=== PATIENT | female | born 1970 | race Caucasian/White ===

== ENCOUNTER 2020-02-06 16:49 | Emergency (ER) | payer OTHER, SELFPAY ==
[2020-02-06 17:01] VITALS: BP 117/73; PULSE 87; RESP 18; TEMP 36.8; O2SAT 100
--- NOTE | 2020-02-06 17:06 | ED.LOWEXIN ---
HPI - Extremity Injury (Lower) General Chief Complaint: Extremity Injury, Lower Stated Complaint: Extremity Injury, Lower Source: patient Mode of arrival: ambulatory Limitations: no limitations History of Present Illness HPI Narrative: Patient is a 49-year-old female who presents complaining of right lower back pain that radiates into her right buttock. She reports that she was walking dog who got excited and patient twisted around injuring back. She denies falling, she denies other injury. She reports taking Tylenol with limited relief. She denies major medical history. Related Data Allergies Allergy/AdvReac Type Severity Reaction Status Date / Time diphenhydramine Allergy Intermediate vomiting Verified 01/22/18 10:29 Review of Systems Review of Systems: Narrative: CONSTITUTIONAL: Denies fever, chills, or sweats. EYES: Denies visual changes, redness, or discharge. ENT: Denies rhinorrhea, congestion, sore throat, or otalgia. CARDIOVASCULAR: Denies chest pain, palpitations, or edema. RESPIRATORY: Denies cough or dyspnea. GASTROINTESTINAL: Denies abdominal pain, nausea, vomiting, or diarrhea. GENITOURINARY: Denies dysuria or hematuria. SKIN: Denies rash or itching. MUSCULOSKELETAL: Reports lower back pain that radiates down leg NEUROLOGIC: Denies headache, numbness, dizziness, or weakness. PSYCHIATRIC: Denies anxiety or depression. PMFSH Past Medical History Medical History Bipolar disorder Endometriosis Surgical History Surgical History H/O: Family History Family History Other No significant family history Social History Social History (Updated 02/06/20 @ 17:09 by CHRISTINE Cobos) Smoking status: Current every day smoker Alcohol intake: current Alcohol use details: Occasional Substance use: never Living arrangements: with family Gender identity (if verbalized by the patient): Female Exam Narrative: Exam Narrative: GENERAL: Well-appearing, well-nourished, and in no acute distress. HEAD: Normocephalic, atraumatic. EYES: No redness or drainage. ENT: Mucous membranes pink and moist. CHEST: No respiratory distress. Clear to auscultation. HEART: Regular rate and rhythm. MUSCULOSKELETAL: Right lower back tenderness with palpation, no ecchymosis or abnormality noted EXTREMITIES: Normal range of motion. No edema. SKIN: Warm, dry, no rash. NEURO: No focal deficits. Alert and oriented x3. Gait steady. PSYCH: Normal affect. No signs of depression or anxiety. Course Vital Signs Vital signs: Vital Signs Temperature 36.8 C 02/06/20 17:01 Pulse Rate 87 02/06/20 17:01 Respiratory Rate 18 02/06/20 17:01 Blood Pressure 117/73 02/06/20 17:01 Pulse Oximetry 100 02/06/20 17:01 Temperature 36.8 C 02/06/20 17:01 Pulse Rate 87 02/06/20 17:01 Respiratory Rate 18 02/06/20 17:01 Blood Pressure 117/73 02/06/20 17:01 Pulse Oximetry 100 02/06/20 17:01 Reviewed MDM - Extremity Injury (Lower) MDM Narrative Medical decision making narrative: Patient most likely has musculoskeletal back pain due to twisting nature of injury. Patient to be given muscle relaxant and pain medication. Discussed with patient ice and heat for comfort. Patient is stable for discharge to home with outpatient follow-up as discussed. Differential Diagnosis Differential diagnosis: Likely other (Sprain, strain, contusion) Critical Care Time Critical Care Time Critical Care Time: No Discharge Plan Discharge Clinical Impression: Musculoskeletal back pain Patient Disposition: Home, Self-Care Condition: Stable Instructions: Antibiotic Form, Acute Low Back Pain (ED) Additional Instructions: Take medication as directed. You may use ice or heat for comfort. Follow-up with your PCP if pain increases or yo
[2020-02-06] MEDS: KETOROLAC (*BKC) 60 MG/2 ML VIAL IM (17:23)
== END 2020-02-06 17:57 | disposition home or self-care (01) ==
PROVIDERS: Emergency Provider Nurse Practitioner
DX: M54.5 Low back pain (principal); F17.200 Nicotine dependence, unspecified, uncomplicated; N80.9 Endometriosis, unspecified
CPT/HCPCS: 96372; 99213; G0463; J1885

== ENCOUNTER 2020-02-23 11:03 | Emergency (ER) | payer OTHER, SELFPAY ==
--- NOTE | ~2020-02-23 | XR_ITS ---
EXAMINATION: XR hip RT min 2V DATE: 02/23/2020 11:38 INDICATION: Posterior right hip pain post fall TECHNIQUE: Anteroposterior view of the pelvis and anteroposterior, frog leg and cross-table lateral v iews of the right hip were obtained. COMPARISON: None. FINDINGS: Alignment is normal. No fracture. Joint spaces are normal. Soft tissues are unremarkable. IMPRESSION: 1. Negative right hip radiographs. Reviewed, dictated and finalized at location A. MANAGER
[2020-02-23 11:13] VITALS: BP 147/98; PULSE 98; RESP 16; TEMP 36.4; O2SAT 100
--- NOTE | 2020-02-23 11:18 | ED.LOWEXIN ---
HPI - Extremity Injury (Lower) General Chief Complaint: Back Pain/Injury Stated Complaint: Fall Time Seen by Provider: 02/23/20 11:19 Source: patient and RN notes reviewed History of Present Illness HPI Narrative: Patient is a 49-year-old female who presents the urgent care with complaints of a recurrent fall. Patient was seen on the stating that her dog knocked her over and was having back pain at that time. Patient was given Flexeril. Patient then went to the emergency room on the and was prescribed tramadol for her pain. Patient has had no x-rays at our facility. Patient states that she did have x-rays in the emergency room and they told her she had a torn ligament. Patient states that 4 days ago she has now had a recurrent fall, down the steps, after her dog pushed her down the stairs. Patient states that she is having right sided low back pain that radiates into the buttocks and down the right leg. Patient states the the pain has been the same and is never resolved from her first episode. Patient reports of trying everything without any relief . Reports of falling down concrete stairs and landing directly on the right buttock/hip. Patient states that she is having worsening pain with weightbearing, ambulation and even sitting on the right side. Denies of hitting her head or any loss of consciousness. States that she has been taking the tramadol, Tylenol and Flexeril without any pain relief. No other acute complaints. Patient has requested a different pain medication several times during the assessment. Patient is erratic in the chair. Poor hygiene noted. Patient aware of the plan of care. Some parts of this dictation were generated by voice recognition software and may contain typographical and/or grammatical inaccuracies. Related Data Home Medications Medication Instructions Recorded Confirmed citalopram 20 mg PO DAILY 02/23/20 02/23/20 hydroxyzine HCl 50 mg PO TID 02/23/20 02/23/20 quetiapine [Seroquel] 50 mg PO BID 02/23/20 02/23/20 venlafaxine 50 mg PO BID 02/23/20 02/23/20 Allergies Allergy/AdvReac Type Severity Reaction Status Date / Time diphenhydramine Allergy Intermediate vomiting Verified 02/23/20 11:24 Review of Systems Review of Systems: Narrative: CONSTITUTIONAL: Denies fever, chills, or sweats. EYES: Denies visual changes, redness, or discharge. ENT: Denies rhinorrhea, congestion, sore throat, or otalgia. CARDIOVASCULAR: Denies chest pain, palpitations, or edema. RESPIRATORY: Denies cough or dyspnea. GASTROINTESTINAL: Denies abdominal pain, nausea, vomiting, or diarrhea. GENITOURINARY: Denies dysuria or hematuria. SKIN: Denies rash or itching. MUSCULOSKELETAL: Reports of right low back pain radiating to the right hip, right groin and down the right leg NEUROLOGIC: Denies headache, numbness, or weakness. All other systems reviewed are negative, except as documented in HPI. [facility] Past Medical History Medical History Bipolar disorder Endometriosis Surgical History Surgical History H/O: Family History Family History Other No significant family history Social History Social History (Updated 02/06/20 @ 17:09 by CHRISTINE Cobos) Smoking status: Current every day smoker Alcohol intake: current Substance use: never Gender identity (if verbalized by the patient): Female Comments At the time of my signature, I reviewed and agree with the nursing past medical, surgical, social, and family history. There is no relevant family history pertinent to the patient complaint. Exam Narrative: Exam Narrative: GENERAL: This is a well-nourished, well-developed patient. Disheveled, poor hygiene and erratic HEAD: normocephalic, atraumatic. EYES: PERRL. Sclera clear/white. Vision is grossly intact. EARS:
--- NOTE | 2020-02-23 11:45 | PC.NURSE ---
PT TAKEN TO RADIOLOGY IN WHEELCHAIR
== END 2020-02-23 12:02 | disposition home or self-care (01) ==
PROVIDERS: Emergency Provider Nurse Practitioner Family
DX: M25.551 Pain in right hip (principal); S39.012A Strain of muscle, fascia and tendon of lower back, initial encounter; W10.9XXA Fall (on) (from) unspecified stairs and steps, initial encounter; F17.200 Nicotine dependence, unspecified, uncomplicated; N80.9 Endometriosis, unspecified; F31.9 Bipolar disorder, unspecified
CPT/HCPCS: 73502; 99213; G0463

== ENCOUNTER 2020-10-17 16:27 | Emergency (ER) | payer OTHER, SELFPAY ==
[2020-10-17 16:38] VITALS: BP 108/71; PULSE 104; RESP 16; TEMP 36.8; O2SAT 98
--- NOTE | 2020-10-17 17:24 | ED.SKABFB ---
HPI - Skin/Abscess/Foreign Bdy General Chief complaint: Skin/Abscess/Foreign Body Stated complaint: Possible Head Lice or possible Bed Bugs Time Seen by Provider: 10/17/20 17:26 Source: patient, RN notes reviewed and old records reviewed Mode of arrival: ambulatory Limitations: no limitations History of Present Illness HPI narrative: 50-year-old female presents to [facility] with complaints of head itching for the past 2 weeks wonders if she has head lice or bedbugs. Patient states she thought some items at a yard sale 2-1/2 weeks ago concerned that maybe she had known contact with bedbugs or head lice from items. Patient reports that she just shaved her head 4 weeks ago, hair starting to grow back possibly this itchy scalp could be from her hair growing back wants to be checked for head lice. Denies any specific lesions on skin, no fever chills or sweats, no other ill symptoms. Related Data Home Medications Medication Instructions Recorded Confirmed citalopram 20 mg PO DAILY 02/23/20 10/17/20 hydroxyzine HCl 50 mg PO TID PRN 02/23/20 10/17/20 quetiapine 100 mg PO HS 10/17/20 10/17/20 venlafaxine 225 mg PO DAILY 10/17/20 10/17/20 Allergies Allergy/AdvReac Type Severity Reaction Status Date / Time diphenhydramine Allergy Intermediate vomiting Verified 10/17/20 17:36 Review of Systems Review of Systems: CONSTITUTIONAL: Denies fever, chills, or sweats. EYES: Denies visual changes, redness, or discharge. ENT: Denies rhinorrhea, congestion, sore throat, or otalgia. CARDIOVASCULAR: Denies chest pain, palpitations, or edema. RESPIRATORY: Denies cough or dyspnea. GASTROINTESTINAL: Denies abdominal pain, nausea, vomiting, or diarrhea. GENITOURINARY: Denies dysuria or hematuria. SKIN: Denies rash positive itching to scalp. MUSCULOSKELETAL: Denies back pain, joint pain, or myalgia. NEUROLOGIC: Denies headache, numbness, or weakness. PSYCHIATRIC: Denies anxiety or depression. All systems reviewed & are unremarkable except as noted in HPI and below PMFSH Past Medical History Medical History (Updated 10/21/20 @ 10:32 by Eula Lofton NP) Bipolar disorder Endometriosis Surgical History Surgical History (Updated 10/20/20 @ 10:36 by Eula Lofton NP) H/O: History of endometrial ablation Family History Family History Other No significant family history Social History Social History Smoking status: Current every day smoker Alcohol intake: current Alcohol use details: Occasional Substance use: never Gender identity (if verbalized by the patient): Female Comments At time of signature, agree with nursing past medical, surgical, social and family history. There is no relevant family history pertinent to the presenting complaint Exam Narrative: GENERAL: Well-appearing, well-nourished, and in no acute distress, hygiene good. HEAD: Normocephalic, atraumatic. EYES: PERRLA and EOMI. ENT: Nares clear, no rhinorrhea or epistaxis. Mucous membranes moist. NECK: Supple. No lymphadenopathy CHEST: Clear to auscultation. No respiratory distress. SaO2 98% on room air HEART: Regular rate and rhythm. No murmur heard. Normal peripheral pulses. ABDOMEN: Soft, nontender, nondistended, normal active bowel sounds. EXTREMITIES: Normal range of motion. No edema. SKIN: Warm, dry, no rash noted, using wood lamp no evidence of head lice noted, some dry skin noted on scalp but no nits or evidence of head lice noted. NEURO: No focal deficits. Alert and oriented x3. Course Vital Signs Vital signs: Vital Signs Temperature 36.8 C 10/17/20 16:38 Pulse Rate 104 H 10/17/20 16:38 Respiratory Rate 16 10/17/20 16:38 Blood Pressure 108/71 10/17/20 16:38 Pulse Oximetry 98 10/17/20 16:38 Temperature 36.8 C 10/17/20 16:38 Pulse Rate 104 H 10/17/20 16:38 Respiratory Rate 16
== END 2020-10-17 17:55 | disposition home or self-care (01) ==
PROVIDERS: Emergency Provider Registered Nurse
DX: L30.9 Dermatitis, unspecified (principal); F17.200 Nicotine dependence, unspecified, uncomplicated; N80.0 Endometriosis of uterus; F31.9 Bipolar disorder, unspecified
CPT/HCPCS: 99211; G0463

== ENCOUNTER 2021-07-29 13:16 | Emergency (ER) | payer OTHER, SELFPAY ==
[2021-07-29 13:23] VITALS: BP 141/75; PULSE 107; RESP 16; TEMP 36.6; O2SAT 99
--- NOTE | 2021-07-29 13:31 | ED.URI ---
HPI - URI/Sore Throat General Chief Complaint: Upper Respiratory Infection Stated Complaint: Sore Throat/Headache Time Seen by Provider: 07/29/21 13:31 Source: patient and RN notes reviewed History of Present Illness HPI Narrative: Patient is a 51-year-old female who presents the urgent care with complaints of sore throat and headache for the last 3 days. Patient also reports of nasal congestion and fatigue. Patient has been taking ibuprofen without much relief. Is of any ill exposures. Denies of any known fever, nausea or vomiting. No other acute complaints. No acute distress noted. Patient aware of the plan of care. Some parts of this dictation were generated by voice recognition software and may contain typographical and/or grammatical inaccuracies. Related Data Home Medications Medication Instructions Recorded Confirmed citalopram mg 07/29/21 hydroxyzine pamoate 07/29/21 mirtazapine 15 mg PO HS 07/29/21 07/29/21 quetiapine 07/29/21 venlafaxine mg PO 07/29/21 Allergies Allergy/AdvReac Type Severity Reaction Status Date / Time diphenhydramine Allergy Intermediate vomiting Verified 07/29/21 13:40 Review of Systems Review of Systems: CONSTITUTIONAL: Denies fever, chills, or sweats. EYES: Denies visual changes, redness, or discharge. ENT: Reports of sore throat, postnasal drainage and mild congestion CARDIOVASCULAR: Denies chest pain, palpitations, or edema. RESPIRATORY: Denies cough or dyspnea. GASTROINTESTINAL: Denies abdominal pain, nausea, vomiting, or diarrhea. GENITOURINARY: Denies dysuria or hematuria. SKIN: Denies rash or itching. MUSCULOSKELETAL: Denies back pain, joint pain, or myalgia. NEUROLOGIC: Reports of headache All other systems reviewed are negative, except as documented in HPI. [facility] Past Medical History Medical History (Updated 07/29/21 @ 14:00 by CHRISTINE Coreas) Bipolar disorder Endometriosis Surgical History Surgical History (Updated 10/20/20 @ 10:36 by Eula Lofton NP) H/O: History of endometrial ablation Family History Family History Other No significant family history Social History Social History (Reviewed 10/17/20 @ 17:26 by JAI Black Smoking status: Current every day smoker Alcohol intake: current Alcohol use details: Occasional Substance use: never Gender identity (if verbalized by the patient): Female Comments At the time of my signature, I reviewed and agree with the nursing past medical, surgical, social, and family history. There is no relevant family history pertinent to the patient complaint. Exam Narrative: GENERAL: This is a well-nourished, well-developed patient, in no apparent distress. HEAD: normocephalic, atraumatic. EYES: PERRL. Sclera clear/white. Vision is grossly intact. EARS: External ears normal, auditory canals clear and without drainage, TMs normal without perforation. Hearing grossly intact. NOSE: External nose normal with no obvious nasal discharge, mild bilateral erythemic nares with clear yellow rhinorrhea THROAT: Mucous membranes moist, posterior pharynx clear. Moderate postnasal drainage NECK: Neck supple CARDIOVASCULAR: Regular rate and rhythm without murmurs, gallops, or rubs. RESPIRATORY: Clear to auscultation. Breath sounds equal bilaterally. No wheezes, rales, or rhonchi. SKIN: warm, intact with no suspicious lesions or rash, good texture and turgor. NEURO: awake, alert, and oriented to person, place and time. There were no obvious focal neurologic abnormalities. EXTREMITIES: No clubbing, cyanosis, or edema. Course Course Level of Care: Express Care Visit Vital Signs Vital signs: Vital Signs Temperature 97.9 F 07/29/21 13:23 Pulse Rate 107 H 07/29/21 13:23 Respiratory Rate 16 07/29/21 13:23 Blood Pressure 141/75 H 07/29/21 13:23 Pulse Oximetry 99 07/29/21 13:23 Temperature 97.9 F 07/29/21
== END 2021-07-29 14:00 | disposition home or self-care (01) ==
PROVIDERS: Emergency Provider Nurse Practitioner Family
DX: J32.9 Chronic sinusitis, unspecified (principal); Z20.822 Contact with and (suspected) exposure to COVID-19; F17.210 Nicotine dependence, cigarettes, uncomplicated; F31.9 Bipolar disorder, unspecified; N80.9 Endometriosis, unspecified
CPT/HCPCS: 87081; 87426; 87880; 99213; C9803; G0463

== ENCOUNTER 2022-07-08 18:23 | Emergency (ER) | payer OTHER, SELFPAY ==
--- NOTE | ~2022-07-08 | XR_ITS ---
EXAM: XR forearm LT 2V DATE: 07/08/2022 19:53 HISTORY: CAT BITE 07/08/22. SWELLING PAIN. . COMPARISON: None available. FINDINGS: Normal mineralization. No fracture or dislocation. No lytic or blastic lesion. Joint space s are maintained. No erosion or periosteal change. Posterior soft tissue swelling along the anterior forearm. IMPRESSION: Posterior soft tissue swelling along the anterior forearm, no radiopaque foreign body or acute osseous findingX. Reviewed, dictated and finalized at location K. IMPRESSION: Posterior soft tissue swelling along the anterior forearm, no radio paque foreign body or acute osseous findingX.
[2022-07-08 18:31] VITALS: BP 90/51; PULSE 90; RESP 20; TEMP 36.3; O2SAT 100
[2022-07-08] MEDS: TETANUS,DIPHTHERIA,AC PERTUSSIS ADULT (0.5 ML) BOOSTRIX IM (18:57)
--- NOTE | 2022-07-08 19:39 | ED.ANIMALBIT ---
HPI - Animal Bite General Chief Complaint: Animal Bite Stated Complaint: Cat Bite Left Arm Source: patient and RN notes reviewed History of Present Illness HPI narrative: 52-year-old female presents to urgent care with complaints of a cat bite to her left distal forearm. Patient states approximately 2 hours prior to arrival her neighbor's cat attacked her left arm and hand. Patient presents with multiple puncture wounds to left distal forearm and hand. Patient is unknown when her last tetanus vaccination. Patient is unknown on the cat's vaccination status. Patient reports pain that radiates up her arm in her fingertips. Related Data Home Medications Medication Instructions Recorded Confirmed ibuprofen 800 mg tablet 800 mg PO Q8H PRN Pain 07/08/22 07/08/22 Allergies Allergy/AdvReac Type Severity Reaction Status Date / Time diphenhydramine Allergy Intermediate vomiting Verified 07/08/22 19:18 Review of Systems Review of Systems: CONSTITUTIONAL: Denies fever, chills, or sweats. EYES: Denies visual changes, redness, or discharge. ENT: Denies otalgia and sore throat CARDIOVASCULAR: Denies chest pain, palpitations, or edema. RESPIRATORY: Denies cough or dyspnea. GASTROINTESTINAL: Denies abdominal pain, nausea, vomiting, or diarrhea. GENITOURINARY: Denies dysuria or hematuria. SKIN: Cat bites MUSCULOSKELETAL: Right forearm and hand pain NEUROLOGIC: Denies headache, numbness, or weakness. Pertinent positives per HPI. [facility] Past Medical History Medical History (Updated 07/08/22 @ 19:59 by Ivone Altman, RAMIRO) Bipolar disorder Endometriosis Surgical History Surgical History (Updated 10/20/20 @ 10:36 by Eula Lofton NP) H/O: History of endometrial ablation Family History Family History Other No significant family history Social History Social History Smoking status: Current every day smoker Alcohol intake: current Alcohol use details: Occasional Substance use: never Living arrangements: with family Gender identity (if verbalized by the patient): Female Comments At the time of my signature, I reviewed and agree with the nursing past medical, surgical, social, and family history. There is no relevant family history pertinent to the patient complaint. Exam Narrative: GENERAL: This is a well-nourished, well-developed patient, in no apparent distress. HEAD: normocephalic, atraumatic. EYES: Sclera clear/white. Vision is grossly intact. EARS: External ears normal, auditory canals clear and without drainage. Hearing grossly intact. NOSE: External nose normal with no obvious nasal discharge, nares without redness, no rhinorrhea. THROAT: Mucous membranes moist, posterior pharynx clear. NECK: Neck supple, non-tender without lymphadenopathy, masses or thyromegaly. CARDIOVASCULAR: Regular rate and rhythm without murmurs, gallops, or rubs. RESPIRATORY: Clear to auscultation. Breath sounds equal bilaterally. No wheezes, rales, or rhonchi. SKIN: multiple puncture wounds to left FA, hand, and fingers. NEURO: awake, alert, and oriented to person, place and time. There were no obvious focal neurologic abnormalities. EXTREMITIES: Left distal forearm swelling and tenderness. Mild swelling to left fingers and hand. Course Course Level of Care: Express Care Visit Vital Signs Vital signs: Vital Signs Temperature 97.4 F L 07/08/22 18:31 Pulse Rate 90 07/08/22 18:31 Respiratory Rate 20 07/08/22 18:31 Blood Pressure 90/51 L 07/08/22 18:31 Pulse Oximetry 100 07/08/22 18:31 Oxygen Delivery Room Air 07/08/22 18:31 Temperature 97.4 F L 07/08/22 18:31 Pulse Rate 90 07/08/22 18:31 Respiratory Rate 20 07/08/22 18:31 Blood Pressure 90/51 L 07/08/22 18:31 Pulse Oximetry 100 07/08/22 18:31 Oxygen Delivery Room Air 07/08/22 18:31 Reviewed
[2022-07-08] MEDS: cefTRIAXone 1 GM VIAL IM (19:57)
[2022-07-08] MEDS: ACETAMINOPHEN 500 MG TABLET 1000 MG PO (20:06)
--- NOTE | 2022-07-08 20:50 | PC.NURSE ---
PT RIDE HAS LEFT AND BOYFRIEND WILL NOT COME TO GET HER. JM CALLED
--- NOTE | 2022-07-08 20:56 | PC.NURSE ---
PT ESCORTED PER RN TO ER TO GO HOME
== END 2022-07-08 20:39 | disposition home or self-care (01) ==
PROVIDERS: Emergency Provider Nurse Practitioner Family
DX: S51.832A Puncture wound without foreign body of left forearm, initial encounter (principal); S61.432A Puncture wound without foreign body of left hand, initial encounter; W55.01XA Bitten by cat, initial encounter; Z23 Encounter for immunization; N80.9 Endometriosis, unspecified; F17.200 Nicotine dependence, unspecified, uncomplicated
CPT/HCPCS: 73090; 90471; 90715; 96372; 99213; A9270; G0463; J0696